=== PATIENT | female | born 1995 | race Hispanic/Latino ===

== ENCOUNTER 2023-09-29 16:24 | Emergency (ER) | payer SELFPAY ==
[~2023-09-29] VITALS: Ht 162.6 cm; Wt 70.3 kg
[2023-09-29] MEDS ORDERED: PREDNISONE20 MG PO (17:24)
[2023-09-29] MEDS ORDERED: ACYCLOVIR800 MG PO (17:24)
[2023-09-29 17:36] VITALS: BP 116/83
== END 2023-09-29 17:46 | disposition home or self-care (01) | DRG 74 ==
LOC: ED 16:24
DX: G51.0 Bell's palsy (principal)